=== PATIENT | female | born 1935 | race Caucasian/White ===

== ENCOUNTER 2024-04-19 16:49 | Emergency (ER) | payer BC ==
[2024-04-19 17:40] LABS: BASOPHILS ABSOLUTE AUTO 0.1 K/mm3 (0.0-0.2); BASOPHILS PERCENT AUTO 0.7 % (0.0-1.0); EOSINOPHILS ABSOLUTE AUTO 0.2 K/mm3 (0.0-0.4); EOSINOPHILS PERCENT AUTO 1.9 % (0.0-6.0); HEMATOCRIT 39.4 % (37.0-47.0); HEMOGLOBIN 13.2 gm/dl (12.0-16.0); IMMATURE GRAN ABSOLUTE AUTO 0.03 K/mm3 (0.00-0.05); IMMATURE GRAN PERCENT AUTO 0.3 % (0.0-0.4); LYMPHOCYTES ABSOLUTE AUTO 4.2 K/mm3 (1.0-4.8); LYMPHOCYTES PERCENT AUTO 41.5 % (24.0-44.0); MEAN CORPUSCULAR HEMOGLOBIN 30.4 pg (28.0-32.0); MEAN CORPUSCULAR HGB CONC 33.5 g/dl (32.0-36.0); MEAN CORPUSCULAR VOLUME 90.8 fl (83.0-99.0); MEAN PLATELET VOLUME 9.4 fl (9.4-12.3); MONOCYTES ABSOLUTE AUTO 1.1 K/mm3 (0.0-0.8); MONOCYTES PERCENT AUTO 10.9 % (0.0-8.0); NEUTROPHILS ABSOLUTE AUTO 4.5 K/mm3 (1.8-7.7); NEUTROPHILS PERCENT AUTO 44.7 % (41.0-71.0); PLATELET COUNT,PLT 342 K/mm3 (150-400); RED BLOOD CELL COUNT 4.34 M/mm3 (4.10-5.30); WHITE BLOOD CELL COUNT,WBC 10.02 K/mm3 (3.9-11.3)
[2024-04-19 18:03] LABS: A/G RATIO 0.9 (1-2); ALBUMIN 3.6 g/dl (3.4-5.0); ANION GAP 12.4 (5-15); BILIRUBIN TOTAL 0.7 mg/dL (0.2-1.0); BUN/CREATININE RATIO 8.3 (14-18); C-REACTIVE PROTEIN 0.63 mg/dL (<0.30); CALCIUM 9.5 mg/dL (8.5-10.1); CREATININE 1.2 mg/dL (0.55-1.02); EST CRCL DRUG DOSING (CG) 29.06 mL/min; MAGNESIUM 1.8 mg/dL (1.8-2.4); POTASSIUM,K 3.4 mEq/L (3.5-5.1); PROTEIN TOTAL,TP 7.8 g/dl (6.4-8.2)
[2024-04-19 18:06] LABS: LACTIC ACID 0.8 mmol/L (0.4-2.0)
[2024-04-19] MEDS: Sodium Chloride 0.9% 10 ML Syringe FLUSH ONE (19:01)
[2024-04-19] MEDS: Iopamidol 612 MG/ML 100 ML Bottle IVPUSH ONE (19:01)
[2024-04-19] MEDS: Lactated Ringers 1,000 ML IV SCH (19:36)
== END 2024-04-19 20:44 | disposition home or self-care (01) ==
LOC: JD.ED 16:49
DX: A04.71 Enterocolitis due to Clostridium difficile, recurrent (principal); R74.8 Abnormal levels of other serum enzymes; I10 Essential (primary) hypertension; Z90.710 Acquired absence of both cervix and uterus
CPT/HCPCS: 36415; 74177; 80053; 83605; 83690; 83735; 85025; 86140; 96360; 99285; J3490; J7120; Q9967; 99284

== ENCOUNTER 2024-08-01 16:58 | Inpatient (IN) | payer MEDICARE, BC ==
[2024-08-01] MEDS ORDERED: Sodium Chloride 0.9% 10 ML Syringe FLUSH PRN (17:08)
[2024-08-01] MEDS: Iopamidol 755 Mg/ML 100 ML Bottle IVPUSH ONE (17:34)
[2024-08-01] MEDS: Sodium Chloride 0.9% 100 ML IV SCH (17:34)
[2024-08-01] MEDS: Sodium Chloride 0.9% 500 ML IV ONE (17:43)
[2024-08-01 17:47] LABS: BASOPHILS ABSOLUTE AUTO 0.1 K/mm3 (0.0-0.2); BASOPHILS PERCENT AUTO 1.2 % (0.0-1.0); EOSINOPHILS ABSOLUTE AUTO 0.2 K/mm3 (0.0-0.4); HEMATOCRIT 37.7 % (37.0-47.0); HEMOGLOBIN 12.4 gm/dl (12.0-16.0); IMMATURE GRAN ABSOLUTE AUTO 0.04 K/mm3 (0.00-0.05); IMMATURE GRAN PERCENT AUTO 0.5 % (0.0-0.4); LYMPHOCYTES ABSOLUTE AUTO 3.1 K/mm3 (1.0-4.8); LYMPHOCYTES PERCENT AUTO 36.4 % (24.0-44.0); MEAN CORPUSCULAR HEMOGLOBIN 30.3 pg (28.0-32.0); MEAN CORPUSCULAR HGB CONC 32.9 g/dl (32.0-36.0); MEAN CORPUSCULAR VOLUME 92.2 fl (83.0-99.0); MEAN PLATELET VOLUME 9.6 fl (9.4-12.3); MONOCYTES ABSOLUTE AUTO 0.9 K/mm3 (0.0-0.8); MONOCYTES PERCENT AUTO 10.2 % (0.0-8.0); NEUTROPHILS ABSOLUTE AUTO 4.2 K/mm3 (1.8-7.7); NEUTROPHILS PERCENT AUTO 49.7 % (41.0-71.0); PLATELET COUNT,PLT 362 K/mm3 (150-400); RED BLOOD CELL COUNT 4.09 M/mm3 (4.10-5.30); WHITE BLOOD CELL COUNT,WBC 8.45 K/mm3 (3.9-11.3)
[2024-08-01 17:54] LABS: INR 1.03; PROTHROMBIN TIME 10.9 SECONDS (9.7-12.0)
[2024-08-01 17:55] LABS: PTT,PARTIAL THROMBOPLSTIN TIME 25.2 SECONDS (21.7-31.4)
[2024-08-01 18:10] LABS: A/G RATIO 0.8 (1-2); ALBUMIN 3.4 g/dl (3.4-5.0); ANION GAP 14.1 (5-15); BILIRUBIN TOTAL 0.3 mg/dL (0.2-1.0); BUN/CREATININE RATIO 14.6 (14-18); CALCIUM 8.4 mg/dL (8.5-10.1); CREATININE 1.3 mg/dL (0.55-1.02); EST CRCL DRUG DOSING (CG) 25.22 mL/min; POTASSIUM,K 4.1 mEq/L (3.5-5.1); PROTEIN TOTAL,TP 7.6 g/dl (6.4-8.2)
[2024-08-01] MEDS: Clopidogrel 75 MG Tab PO ONE (19:18)
[2024-08-01] MEDS: Aspirin 81 MG Tab.Chew PO ONE (19:18)
[2024-08-01] MEDS ORDERED: oxyCODONE 5 MG Tab PO PRN (19:35)
[2024-08-01] MEDS ORDERED: Sennosides/Docusate Sodium 50-8.6 MG Tab PO PRN (19:35)
[2024-08-01] MEDS ORDERED: Naloxone 0.4 MG/ML SDV IVPUSH PRN (19:35)
[2024-08-01] MEDS ORDERED: Morphine 2 MG/ML SYRINGE IVPUSH PRN (19:35)
[2024-08-01] MEDS ORDERED: Acetaminophen 325 MG Tab PO PRN (19:35)
[2024-08-01] MEDS ORDERED: LORazepam 2 MG/ML SDV IV PRN (19:35)
[2024-08-01] MEDS ORDERED: 50% Dextrose in Water 50 ML Syringe IVPUSH PRN (19:37)
[2024-08-01] MEDS: Insulin Lispro 100 Unit/ML 3 ML KwikPen SUBCUT SCH (22:00)
[2024-08-02 07:07] LABS: BASOPHILS ABSOLUTE AUTO 0.1 K/mm3 (0.0-0.2); BASOPHILS PERCENT AUTO 1.3 % (0.0-1.0); EOSINOPHILS ABSOLUTE AUTO 0.2 K/mm3 (0.0-0.4); EOSINOPHILS PERCENT AUTO 2.8 % (0.0-6.0); HEMATOCRIT 36.7 % (37.0-47.0); HEMOGLOBIN 12.3 gm/dl (12.0-16.0); IMMATURE GRAN ABSOLUTE AUTO 0.03 K/mm3 (0.00-0.05); IMMATURE GRAN PERCENT AUTO 0.4 % (0.0-0.4); LYMPHOCYTES ABSOLUTE AUTO 3.3 K/mm3 (1.0-4.8); LYMPHOCYTES PERCENT AUTO 42.1 % (24.0-44.0); MEAN CORPUSCULAR HEMOGLOBIN 30.6 pg (28.0-32.0); MEAN CORPUSCULAR HGB CONC 33.5 g/dl (32.0-36.0); MEAN CORPUSCULAR VOLUME 91.3 fl (83.0-99.0); MEAN PLATELET VOLUME 9.8 fl (9.4-12.3); MONOCYTES ABSOLUTE AUTO 0.8 K/mm3 (0.0-0.8); MONOCYTES PERCENT AUTO 10.7 % (0.0-8.0); NEUTROPHILS ABSOLUTE AUTO 3.4 K/mm3 (1.8-7.7); NEUTROPHILS PERCENT AUTO 42.7 % (41.0-71.0); PLATELET COUNT,PLT 348 K/mm3 (150-400); RED BLOOD CELL COUNT 4.02 M/mm3 (4.10-5.30); WHITE BLOOD CELL COUNT,WBC 7.87 K/mm3 (3.9-11.3)
[2024-08-02 07:32] LABS: A/G RATIO 0.8 (1-2); ALBUMIN 3.2 g/dl (3.4-5.0); ANION GAP 14.9 (5-15); BILIRUBIN TOTAL 0.4 mg/dL (0.2-1.0); CALCIUM 8.1 mg/dL (8.5-10.1); EST CRCL DRUG DOSING (CG) 32.79 mL/min; PHOSPHORUS 4.6 mg/dL (2.6-4.7); POTASSIUM,K 3.9 mEq/L (3.5-5.1); PROTEIN TOTAL,TP 7.2 g/dl (6.4-8.2); TSH 0.106 uIU/mL (0.358-3.74)
[2024-08-02 08:00] LABS: T4 FREE 1.32 ng/dL (0.76-1.46)
[2024-08-02] MEDS: Clopidogrel 75 MG Tab PO SCH (08:34)
[2024-08-02] MEDS: Aspirin 81 MG Tab.EC PO SCH (08:34)
[2024-08-02] MEDS: Enoxaparin 40 MG/0.4 ML Syringe SUBCUT SCH (08:34)
[2024-08-02] MEDS ORDERED: Enoxaparin 30 MG/0.3 ML Syringe SUBCUT SCH (09:00)
[2024-08-02 10:19] LABS: CHOLESTEROL HDL 59 mg/dL (40-59); CHOLESTEROL LDL DIRECT 92 mg/dL (<100); CHOLESTEROL TOTAL 172 mg/dL (<200); TRIGLYCERIDES 121 mg/dL (<150)
[2024-08-02] MEDS: Calcium Carbonate 500 MG Tab.Chew CHEW SCH (11:50)
[2024-08-02] MEDS: Saccharomyces Boulardii (Probiotic) 250 MG Cap PO SCH (11:51)
[2024-08-02] MEDS: Calcitriol 0.25 MCG Cap PO SCH (11:51)
[2024-08-02] MEDS: Diclofenac Sodium 1% Gel 100 GM Tube TOP SCH (11:51)
[2024-08-02] MEDS: Cyanocobalamin (Vitamin B12) 1,000 MCG Tab PO SCH (12:07)
[2024-08-02 13:32] LABS: APPEARANCE,URINE CLEAR (Clear); BILIRUBIN,URINE NEGATIVE (Negative); COLOR,URINE YELLOW (Yellow); GLUCOSE,URINE NEGATIVE (Negative); KETONES,URINE NEGATIVE (Negative); LEUKOCYTE ESTERASE,URINE NEGATIVE (Negative); NITRITE,URINE NEGATIVE (Negative); OCCULT BLOOD,URINE NEGATIVE (Negative); PROTEIN,URINE NEGATIVE (Negative); UROBILINOGEN,URINE 0.2 (0.2-1.0)
[2024-08-02 14:02] LABS: BACTERIA,URINE FEW /hpf (FEW); EPITHELIAL CELLS,URINE 0-5 /hpf (0-5); MUCUS,URINE FEW /hpf (FEW); RBC,URINE 0-5 /hpf (0-5); WBC,URINE 0-5 /hpf (0-5)
[2024-08-02] MEDS: atorvaSTATin 40 MG Tab PO SCH (21:25)
[2024-08-02] MEDS: Melatonin 3 MG Tab PO PRN (21:25)
[2024-08-03] MEDS ORDERED: Levothyroxine 112 MCG Tab PO SCH (06:00)
[2024-08-03] MEDS ORDERED: Levothyroxine 75 MCG Tab PO SCH (06:00)
[2024-08-03] MEDS: Levothyroxine 112 MCG Tab PO SCH (06:47)
== END 2024-08-03 12:02 | disposition home or self-care (01) | DRG 65 ==
LOC: JD.ED 16:58 → JD.MS 19:35
PROVIDERS: ADMIT Student in an Organized Health Care Education/Training Program; ATTEND Student in an Organized Health Care Education/Training Program
DX: G45.9 Transient cerebral ischemic attack, unspecified (principal); I63.9 Cerebral infarction, unspecified; G81.94 Hemiplegia, unspecified affecting left nondominant side; R29.700 NIHSS score 0; E78.00 Pure hypercholesterolemia, unspecified; I10 Essential (primary) hypertension; G43.909 Migraine, unspecified, not intractable, without status migrainosus; E89.0 Postprocedural hypothyroidism; I45.10 Unspecified right bundle-branch block; H91.90 Unspecified hearing loss, unspecified ear; Z66 Do not resuscitate; K52.9 Noninfective gastroenteritis and colitis, unspecified; E20.9 Hypoparathyroidism, unspecified; Z87.81 Personal history of (healed) traumatic fracture; Z90.710 Acquired absence of both cervix and uterus; Z79.899 Other long term (current) drug therapy; Z97.4 Presence of external hearing-aid; Z98.49 Cataract extraction status, unspecified eye; Z90.89 Acquired absence of other organs
CPT/HCPCS: 36415; 70450; 70496; 70498; 80053; 84484; 85025; 85610; 85730; 87428; 93005; 96360; 99285; A9270 ×2; J3490; J7030; Q9967; 70551; 70551-26; 80061; 81001; 82947; 83036; 83735; 84100; 84439; 84443; 93010; 94760; 94761; 97110-GP; 97116-GP; 97161-GP; J1650